=== PATIENT | female | born 1995 | race Caucasian/White ===

== ENCOUNTER 2018-07-31 07:00 | Emergency (ER) | payer BC ==
[2018-07-31] MEDS ORDERED: 0.9 % SODIUM CHLORIDE 1,000 ML BAG IV ONE (07:22)
[2018-07-31] MEDS ORDERED: ACETAMINOPHEN 1,000 MG/100 ML BTL IVPB ONE (07:24)
--- NOTE | 2018-07-31 07:28 | Emergency Department Record ---
History of Present Illness - General Chief Complaint: Abdominal Pain Stated Complaint: ABD PAIN Time Seen by Provider: 07/31/18 07:10 Source: Patient Mode of Arrival: Ambulatory Limitations: No limitations - History of Present Illness Initial Comments: The patient is here due to RUQ AP for the last 5 hours. The onset was while she was sleeping and the pain woke her up. It does radiate to her back at times and there is no nausea, vomiting, diarrhea, or fever. The patient has no hx of similar problems and has had no Abd surgeries. Additionally the patient denies any lower AP, vaginal discharge, bleeding, or dysuria. MD Complaint: Abdominal pain Onset/Timin -: Hour(s) Location: RUQ Radiation: Back Severity: Mild Severity scale (1-10): 4 Quality: Aching Consistency: Constant Improves With: Nothing Worsens With: Nothing Associated Symptoms: Denies other symptoms - Related Data LMP (females 10-50): Unknown Patient : No Previous Rx's Medication Instructions Recorded Nitrofurantoin Levy [Macrobid] 100 mg PO BID #10 capsule 07/31/18 Sucralfate [Carafate] 1 gm PO QID #28 tablet 07/31/18 Allergies Allergy/AdvReac Type Severity Reaction Status Date / Time No Known Drug Allergies Allergy Verified 07/31/18 07:09 Travel Screening - Travel/Exposure Within Last 30 Days Have you traveled within the last 30 days?: No Review of Systems Constitutional: Denies: Chills, Fever Eyes: Denies: Eye discharge ENT: Denies: Congestion Respiratory: Denies: Cough, Dyspnea Past Medical History - SOCIAL HISTORY Smoking Status: Never smoker Alcohol Use: None Drug Use: None - RESPIRATORY Hx Respiratory Disorders: No - CARDIOVASCULAR Hx Cardio Disorders: No - NEURO Hx Neuro Disorders: No - GI Hx GI Disorders: No - Hx Genitourinary Disorders: No - ENDOCRINE Hx Endocrine Disorders: No - MUSCULOSKELETAL Hx Musculoskeletal Disorders: No - PSYCH Hx Psych Problems: No - HEMATOLOGY/ONCOLOGY Hx Hematology/Oncology Disorders: No Family Medical History Any Significant Family History?: No Physical Exam - General General Appearance: Alert, Oriented x3, Cooperative, No acute distress - Head Head exam: Atraumatic, Normocephalic, Normal inspection - Eye Eye exam: Normal appearance, PERRL, EOMI - ENT Throat exam: Normal inspection. negative: Tonsillar erythema, Tonsillar exudate - Neck Neck exam: Normal inspection, Full ROM. negative: Tenderness - Respiratory Respiratory exam: Normal lung sounds bilaterally. negative: Respiratory distress - Cardiovascular Cardiovascular Exam: Regular rate, Normal rhythm, Normal heart sounds - GI/Abdominal GI/Abdominal exam: Soft, Normal bowel sounds, Tenderness (There is mild RUQ tenderness to palpation.). negative: Guarding, Organomegaly, Pulsatile mass, Rebound, Rigid - Extremities Extremities exam: Normal inspection, Full ROM, Normal capillary refill. negative: Tenderness Image of Full Body: 1 - Area of pain and tenderness. Course Vital Signs 07/31/18 07:11 Temperature 98.7 F Pulse Rate 99 H Respiratory 18 Rate Blood Pressure 142/95 Pulse Ox 95 - Reevaluation(s) Reevaluation #1: The patient is resting comfortably at this time and is waiting on her US. I did inform her that the lab work was WNL's except for a mild UTI. 07/31/18 08:28 Reevaluation #2: The patient is resting comfortably and is very hungry at this time. She is still having the mild RUQ AP. On exam the abdomen is very soft with only very minimal trace RUQ tenderness. I did explain to her the normal US and lab work and will try a GI cocktail at this time. 07/31/18 10:43 Reevaluation #3: The patient is doing better at this time. She states the pain is improved with the GI medicines and she is feeling hungry. I again explained the need for F/U next week for further evaluation. 07/31/18 11:07 Medical Decision Making - Data Complexity MDM Data: Labs Ordered and/or Reviewed, X-Ray Ordered and/or Reviewed - Lab Data Result diagrams: 07/31/18 07:15 07/31/18 07:15 - Radiology Data Radiology results: Report reviewed (Abd US: Neg for any abnormality. Neg for GB disease.) Disposition Disposition: Discharge Clinical Impression: Abdominal pain Qualifiers: Abdominal location: right upper quadrant Qualified Code(s): R10.11 - Right upper quadrant pain Disposition: Home, Self-Care Condition: (2) Stable Instructions: Abdominal Pain (ED) Additional Instructions: Please eat a very bland diet with no fatty or fried foods. Take the Carafate as directed along with the Macrobid. Please see your family doctor next week for recheck and return to the ER for any worsening pain, any fever, or vomiting. Prescriptions: Nitrofurantoin Levy [Macrobid] 100 mg PO BID #10 capsule Sucralfate [Carafate] 1 gm PO QID #28 tablet Forms: Patient Portal Access Time of Disposition: 11:05 Quality - Quality Measures Quality Measures: N/A - Blood Pressure Screening View Details: Yes Does Patient Have Any of the Following: No Blood Pressure Classification: Hypertensive Reading Systolic Measurement: 142 Diastolic Measurement: 95 Screening for High Blood Pressure: < First Hypertensive BP, F/U Documented > [ [id number]] First Hypertensive Follow-up Interventions: Referral to alternative/primary care provider.
[2018-07-31 07:34] LABS: URINE APPEARANCE CLEAR; URINE BILIRUBIN NEGATIVE (NEGATIVE); URINE BLOOD NEGATIVE (NEGATIVE); URINE COLOR YELLOW; URINE GLUCOSE (UA) NEGATIVE (NEGATIVE); URINE KETONE NEGATIVE (NEGATIVE); URINE LEUKOCYTE ESTERASE SMALL (NEGATIVE); URINE NITRITE NEGATIVE (NEGATIVE); URINE PROTEIN NEGATIVE (NEGATIVE); URINE UROBILINOGEN 0.2 E.U./dL (0.20 - 1.00)
[2018-07-31 07:35] LABS: BASO % 0.3 % (0-6); EOS % 1.9 % (0-6); GRAN % 57.9 % (47-80); HEMATOCRIT 39.7 % (35.0-47.0); HEMOGLOBIN 12.8 gm/dl (11.6-16.0); LYMPH % 32.4 % (16-45); MEAN CELL VOLUME 83.8 fl (81-97); MEAN CORPUSCULAR HGB CONC 32.2 g/dl (32-36); MONO % 7.5 % (0-9); PLATELET COUNT 330 K/uL (130-400); RED BLOOD COUNT 4.74 M/uL (3.80-5.40); RED CELL DISTRIBUTION WIDTH 13.4 % (11.5-14.5); WHITE BLOOD COUNT W/O DIFF 6.8 K/uL (4.2-12.2)
[2018-07-31 07:46] LABS: HCG,QUALITATIVE URINE NEGATIVE (NEGATIVE); URINE EPITHELIAL CELLS 0 - 2 (FEW); URINE RBC NONE SEEN (NONE SEEN)
[2018-07-31 07:48] LABS: BLOOD UREA NITROGEN 9 mg/dL (6-20); CREATININE 0.5 mg/dL (0.5-0.9); EST GLOMERULAR FILTRATION RATE > 60 mL/min
[2018-07-31 07:49] LABS: TOTAL PROTEIN 7.5 g/dL (6.6-8.7)
[2018-07-31 07:51] LABS: GLUCOSE,RANDOM 116 mg/dL (74-109)
[2018-07-31 07:53] LABS: ALBUMIN 4.3 g/dL (4.0-5.0); ALKALINE PHOSPHATASE 65 U/L (35-104); ALT/SGPT 32 U/L (<33); AST/SGOT 20 U/L (10.0-35.0); BILIRUBIN,DIRECT < 0.2 mg/dL (0-0.3); LIPASE 33 U/L (13-60)
[2018-07-31] MEDS ORDERED: KETOROLAC 30 MG/ML VIAL IVP ONE (09:04)
[2018-07-31] MEDS ORDERED: MAGNESIUM HYDROXIDE/AL HYDROX 30 ML, LIDOCAINE VISC 2% 15ML 15 ML PO ONE ×2 (10:42)
--- NOTE | 2018-08-01 06:54 | ULTRASOUND REPORT ---
DATE: 07/31/2018. EXAM: ULTRASOUND OF THE ABDOMEN. HISTORY: ABDOMINAL PAIN. TECHNIQUE: Sonographic evaluation of the abdomen was performed using Grayscale imaging. FINDINGS: The liver appears homogeneous. No focal effect mass. No gallstones or ductal dilatation. The common bile duct measures 2.0 mm. The pancreas and spleen appear normal. The kidneys are normal in size with no hydronephrosis or nephrolithiasis. The abdominal aorta and inferior vena cava are patent. IMPRESSION: UNREMARKABLE ABDOMINAL SONOGRAM. JOB NUMBER: [id number] [facility]
== END 2018-07-31 11:16 | disposition home or self-care (01) ==
LOC: ER 07:00
DX: R10.11 Right upper quadrant pain (principal)
CPT/HCPCS: 99284 ×2; 96365; 96375; 83690; 85025; 80076; 80048; 81001; 81025; 76700; J1885; J7030